=== PATIENT | female | born 1995 | race Caucasian/White ===

== ENCOUNTER 2023-11-06 07:33 | Inpatient (IN) ==
[2023-11-06] MEDS ORDERED: LIDOCAINE 1% LOCAL 20 ML VIAL INFIL PRN (07:46)
[2023-11-06] MEDS ORDERED: OXYTOCIN 30 UNITS/NSS 30 UNITS/500 ML BAG IV PRN (07:46)
--- NOTE | 2023-11-06 08:09 | History & Physical Report ---
Date of Service November 06, 2023 Assessment & Plan (1) Encounter for induction of labor: Plan pitocin arom when indicated monitor tracing, category 1 Admission and Anticipated Discharge Date Admission Date: November 06, 2023 History of Present Illness Primary Care Provider: Ban Obando DO 28 yo at 39w4d admitted for IOL for GDM. Denies MARINELLI, CP, SOB, N/V/D, LE pain. GBS neg, RH+, + movement, negative LOF Allergies Allergy/AdvReac Type Severity Reaction Status Date / Time amoxicillin Allergy Intermediate swelling, Verified 11/03/23 10:06 rash azithromycin Allergy Intermediate swelling, Verified 11/03/23 10:06 rash Penicillins Allergy Intermediate swelling, Verified 11/03/23 10:06 rash Home Medications Medication Instructions Recorded Confirmed Type cholecalciferol (vitamin D3) 25 50 mcg (2 x 25 mcg (1,000 unit)) 12/23/22 11/06/23 Rx mcg (1,000 unit) capsule PO DAILY #30 caps vit 168-iron 27 mg-folic 1 cap PO DAILY 03/23/23 11/06/23 History acid 800 mcg-omega3 235 mg capsule (One-A-Day -1) acetone (urine) test (Ketone Urine #50 ea 06/23/23 11/03/23 Rx Test strips) blood sugar diagnostic (OneTouch #150 ea 06/23/23 11/03/23 Rx Verio test strips) blood-glucose meter (OneTouch #1 ea 06/23/23 11/03/23 Rx Verio Reflect Meter) lancets 33 gauge (OneTouch Delica #150 ea 06/23/23 11/03/23 Rx Plus Lancet) pen needle, diabetic 32 gauge x #100 ea 07/04/23 11/03/23 Rx 5/32" (BD Ultra-Fine Shanae Pen Needle) insulin NPH isoph U-100 human 100 10 unit subcut QPM 10/04/23 11/06/23 History unit/mL (3 mL) subcutaneous pen (Novolin N FlexPen) doxylamine succinate 25 mg tablet 25 mg PO HS PRN Sleep 11/06/23 11/06/23 History (Unisom (doxylamine)) Patient History Medical History (Updated 11/06/23 @ 08:32 by Carlos S Carvis, DO) Migraines history of migraines Tailors bunion Allergic rhinitis Nausea and vomiting after administration of anesthetic agent Vitamin D insufficiency Surgical History H/O colonoscopy Hx of LASIK S/P wisdom tooth extraction S/P bunionectomy Right x2. Family History Father Diabetes Hypertension Dyslipidemia Mother Asthma Grandfather (Maternal) Salivary gland cancer Other No family history of adverse response to anesthesia Denies family history of Ovarian cancer Prostate cancer Myocardial infarction Breast cancer Colorectal cancer Social History (Updated 11/06/23 @ 07:51 by Denise Ocampo, MACHELLE) Smoking Status: Never smoker Second Hand Exposure: No; Do You Dip or Chew Tobacco: No; Hx Alcohol Use: No Hx Substance Use: No Preferred Language: Dutch Communication Ability: Effective Visual Impairment: No Limitations Hearing Ability: Normal Director Of Managed Services Required: No Beliefs That Will Affect Care: None marital status: marital status details: Ryne ([phone]) [phone] Current Living Situation: Spouse Current Living Situation Comment: lives with spouse, 1 dog. current occupational status: employed current occupation: Collision Repair Technician [employer] How many Children do You have: 0 Other Information That Helps Us Care for You: No Feels Safe at Home: Yes Safety Concerns: Feels Safe At This Time Childhood Exposure to Second-Hand Smoke: No Diet: regular caffeine: Yes during the past year weight has: remained stable Dental Care, Regularly: Yes Physical Activity Frequency: 5-6 Times per Week Seatbelt Use: always Sunscreen Use: Yes Gender Identity: Female Assistive Devices: None Review of Systems reviewed, per HPI Physical Exam Physical Exam: General: patient resting comfortably, NAD, non-toxic in appearance, answers questions appropriately. Skin: warm, dry, intact HEENT: NC/AT, moist mucus membranes Heart: +S1/S2, regular, no m/r/g Lungs: equal air entry bilaterally, no rales/rhonchi/wheezes Abd: +BS, soft, NT/ND, gravid uterus Cervical: 4|80|-1| Ext: warm, no clubbing/cyanosis or edema Neuro: nonfocal, speech intact, no facial droop, moving all extremities on command. : FHR baseline 130, moderate variability, accelerations present, decelerations absent Results & Data Vital Signs (Past 12 Hours) Vital Signs Temp Pulse Resp BP 11/06/23 07:43 36.7 C 85 20 126/80 Supervising Physician Co-Signing Physician Notes Patient seen and evaluated and agree with the above findings and plan. Resident Activity Tracking Resident Involvement: Resident Care Provided Care Provided: Adult Hospital Medicine
[2023-11-06] MEDS: LACTATED RINGER'S 1,000 ML IV PRN (08:16)
[2023-11-06] MEDS: OXYTOCIN 30 UNITS/NSS 30 UNITS/500 ML BAG IV PRN (08:22)
[2023-11-06 08:27] LABS: Mean Corpuscular Hemoglobin 30.4 pg (25.0-34.0); Mean Corpuscular Hgb Conc 35.3 g/dL (32.0-36.0); Mean Corpuscular Volume 86.1 fL (80.0-100.0); Mean Platelet Volume 12.3 fL (9.4-12.4); Platelet Count 117 K/uL (130-400); RDW Standard Deviation 39.8 fL (36.4-46.3); Red Blood Count 3.95 M/uL (4.20-5.40); White Blood Count 8.56 K/ul (4.8-10.8)
[2023-11-06] MEDS ORDERED: ACETAMINOPHEN 325 MG TAB PO PRN (10:11)
[2023-11-06] MEDS: ACETAMINOPHEN 325 MG TAB PO PRN (10:22)
[2023-11-06] MEDS ORDERED: BUPIVACAINE 0.25% PF 30 ML VIAL EPI PRN (13:50)
[2023-11-06] MEDS ORDERED: fentANYL 2 MCG/ML BUPIVacaine 0.125%-NSS 100ML BAG EPI PRN (13:50)
[2023-11-06] MEDS ORDERED: diphenhydrAMINE 50 MG/ML VIAL IV PRN ×3 (13:50→19:16)
[2023-11-06] MEDS ORDERED: SODIUM CHLORIDE 0.9% PF INJ 10 ML VIAL EPI PRN (13:50)
[2023-11-06] MEDS ORDERED: NALOXONE HCL 0.4 MG/1 ML VIAL/CARP IV PRN ×2 (13:50→18:34)
[2023-11-06] MEDS ORDERED: NALBUPHINE HCL 5 MG in SYRINGE 0 ML IV PRN ×2 (13:50→18:34)
[2023-11-06] MEDS ORDERED: fentaNYL citrate PF 100 MCG/2 ML VIAL EPI PRN (13:50)
[2023-11-06] MEDS ORDERED: LIDOCAINE 2% MPF LOCAL 5 ML VIAL EPI PRN (13:50)
[2023-11-06] MEDS ORDERED: ePHEDrine sulfate 50 MG/ML AMP IV PRN ×2 (13:50→18:34)
[2023-11-06] MEDS ORDERED: ROPIVACAINE 0.5% PF 5 MG/ML 20 ML VIAL EPI PRN (13:50)
[2023-11-06] MEDS ORDERED: NALOXONE HCL 1 MG in SODIUM CHLORIDE 0.9% 1,000 ML IV PRN ×2 (13:50→18:34)
--- NOTE | 2023-11-06 13:50 | Anesthesiology Consultation ---
Date of Service November 06, 2023 Assessment & Plan ASA ASA2 Proposed Anesthesia Anesthesia Type: Labor Epidural Risk / Benefits Reviewed With: PT / POA / Parent / Guardian, Accepts Plan and Informed Consent Obtained History Height/Weight Height: 5 ft 4 in Weight: 84.096 kg Allergies Allergy/AdvReac Type Severity Reaction Status Date / Time amoxicillin Allergy Intermediate swelling, Verified 11/03/23 10:06 rash azithromycin Allergy Intermediate swelling, Verified 11/03/23 10:06 rash Penicillins Allergy Intermediate swelling, Verified 11/03/23 10:06 rash Medications Home Medications Medication Instructions Recorded Confirmed Last Taken cholecalciferol (vitamin D3) 25 50 mcg (2 x 25 mcg (1,000 unit)) 12/23/22 11/06/23 11/04/23 21:00 mcg (1,000 unit) capsule PO DAILY #30 caps vit 168-iron 27 mg-folic 1 cap PO DAILY 03/23/23 11/06/23 11/03/23 21:00 acid 800 mcg-omega3 235 mg capsule (One-A-Day -1) acetone (urine) test (Ketone Urine #50 ea 06/23/23 11/03/23 Unknown Test strips) blood sugar diagnostic (OneTouch #150 ea 06/23/23 11/03/23 Unknown Verio test strips) blood-glucose meter (OneTouch #1 ea 06/23/23 11/03/23 Unknown Verio Reflect Meter) lancets 33 gauge (OneTouch Delica #150 ea 06/23/23 11/03/23 Unknown Plus Lancet) pen needle, diabetic 32 gauge x #100 ea 07/04/23 11/03/23 Unknown 32" (BD Ultra-Fine Shanae Pen Needle) insulin NPH isoph U-100 human 100 10 unit subcut QPM 10/04/23 11/06/23 11/03/23 21:00 unit/mL (3 mL) subcutaneous pen (Novolin N FlexPen) doxylamine succinate 25 mg tablet 25 mg PO HS PRN Sleep 11/06/23 11/06/23 10/30/23 21:00 (Unisom (doxylamine)) Active Medications Generic Name Dose Route Start Last Admin Trade Name Freq PRN Reason Stop Dose Admin Acetaminophen 650 mg 11/06/23 07:46 11/06/23 10:22 Acetaminophen 325 Mg Tab PO 12/06/23 07:45 650 mg Q6H PRN Administration Pain Oxytocin 30 units in 500 mls @ 12 mls/hr 11/06/23 07:47 11/06/23 12:03 Pitocin 30 Units/Nss IV 11/08/23 07:46 0.72 units/hr .Q24H PRN 12 mls/hr Labor Induction/Augmentation Titration Protocol 0.72 UNITS/HR Lactated Ringer's 1,000 mls @ 125 mls/hr 11/06/23 07:46 11/06/23 13:48 Lr IV 11/08/23 07:45 999 mls/hr .Q8H PRN Administration L&D Protocol Protocol Past Medical History Medical History Migraines history of migraines Tailors bunion Allergic rhinitis Nausea and vomiting after administration of anesthetic agent Vitamin D insufficiency Exercise / Class Metabolic Activity II 4-5 Yardwork/Stairs/Walk up hill Past Family History Family History Father Diabetes Hypertension Dyslipidemia Mother Asthma Grandfather (Maternal) Salivary gland cancer Other No family history of adverse response to anesthesia Denies family history of Ovarian cancer Prostate cancer Myocardial infarction Breast cancer Colorectal cancer Past Surgical History Surgical History H/O colonoscopy Hx of LASIK S/P wisdom tooth extraction S/P bunionectomy Right x2. Past Anesthesia History No Hx of Anesthesia Complications and No Family Hx of Anesthesia Complications History of PONV No Hx of PONV and No Hx of Motion Sickness Social History Smoking Status: Never smoker Do You Dip or Chew Tobacco: No Hx Alcohol Use: No Alcohol type: beer alcohol intake frequency: a few times a month Hx Substance Use: No substance use type: does not use Review of Systems denies fever/cough/ colds/ chest pain/ SOB/ EUSEBIA denies EUSEBIA Physical Exam Vital Signs Last Vital Signs Temp 36.8 C 11/06/23 12:02 Pulse 53 L 11/06/23 13:32 Resp 18 11/06/23 12:30 BP 132/84 11/06/23 13:32 ENMT Mouth: no TMJ abnormality and no dentition abnormality Thyromental Distance: > or= 3.5 Finger Breadths Mallampati Class: II Neck neck extension not limited Respiratory normal respiratory effort; no respiratory distress Auscultation: lungs clear to auscultation bilaterally Cardiovascular Rate/Rhythm: regular rate and regular rhythm Neurologic moves all extremities Psychiatric Orientation: alert and oriented x 3 Testing Laboratory Results 11/06/23 08:08 11/06/23 08:25 POC Glucose 95
[2023-11-06] MEDS: LIDOCAINE 2%/EPINEPHRINE 1:200,000 20 ML PF ONE (14:05)
[2023-11-06] MEDS: fentaNYL citrate PF 100 MCG/2 ML VIAL ONE (14:07)
[2023-11-06] MEDS: fentANYL 2 MCG/ML BUPIVacaine 0.125%-NSS 100ML BAG ONE (14:11)
[2023-11-06] MEDS: BUPIVACAINE 0.25% PF 30 ML VIAL ONE (14:18)
[2023-11-06] MEDS: SODIUM CHLORIDE 0.9% PF INJ 10 ML VIAL EPI STA (14:21)
[2023-11-06] MEDS ORDERED: PROPOFOL IV EMULSION 10 MG/ML 20 ML VIAL IV ONE (17:56)
[2023-11-06] MEDS ORDERED: SUCCINYLCHOLINE CHLORIDE 20 MG/ML 10 ML VIAL IV ONE (17:56)
[2023-11-06] MEDS ORDERED: OXYTOCIN 10 UNITS/ML VIAL ONE (17:57)
[2023-11-06] MEDS ORDERED: fentaNYL citrate PF 100 MCG/2 ML VIAL ONE ×2 (18:00→18:05)
[2023-11-06] MEDS ORDERED: KETAMINE HCL INJ 50 MG/ML 10 ML VIAL ONE (18:06)
[2023-11-06] MEDS ORDERED: HYDROmorphone INJ 2 MG/ML SYR/VIAL ONE (18:06)
[2023-11-06] MEDS ORDERED: PHENYLEPHRINE 100MCG/ML 10ML SYR IV ONE (18:10)
[2023-11-06] MEDS ORDERED: ONDANSETRON INJ 2 MG/ML 2 ML VIAL ONE (18:10)
[2023-11-06 18:29] LABS: Base Excess Cord Arterial Bld -7.7 mEq/L (-9-1.8); Base Excess Cord Venous Blood -6.6 mEq/L (-7.7-1.9); CO2 Cord Arterial Blood 62 mmHg (39.1-73.5); Cord Venous Blood HCO3 20 mmol/L (18.4-26.8); Cord Venous Blood PCO2 44 mmHg (30.4-57.2); Cord Venous Blood PO2 25 mmHg (14.1-43.3); Cord Venous Blood pH 7.27 (7.20-7.44); HCO3 Cord Arterial Blood 22 mmol/L (19.7-28.5); O2 Saturation Cord Venous Bld < 60.0 % (<68); Oxygen Sat Cord Arterial Blood < 60.0 % (<60); PO2 Cord Arterial Blood < 20 mmHg (4.1-31.7); pH Cord Arterial Blood 7.16 (7.1-7.38)
[2023-11-06] MEDS ORDERED: NALOXONE HCL 0.08 MG in SYRINGE 1.8 ML IV PRN (18:34)
[2023-11-06] MEDS ORDERED: HYDROmorphone INJ 0.5 MG/0.5 ML SYR IV PRN (18:34)
[2023-11-06] MEDS ORDERED: LACTATED RINGER'S 500 ML IV PRN (18:34)
[2023-11-06] MEDS ORDERED: MoRPHine SULFATE PF 1 MG/ML 10 ML AMP/VIAL ONE (18:34)
[2023-11-06] MEDS ORDERED: ONDANSETRON INJ 2 MG/ML 2 ML VIAL IV PRN ×2 (18:34→19:16)
[2023-11-06] MEDS ORDERED: MoRPHine SULFATE 2 MG/ML CARP IV PRN (18:34)
[2023-11-06] MEDS: ePHEDrine sulfate 50 MG/ML AMP ONE (18:39)
[2023-11-06] MEDS ORDERED: NO NARCOTICS OR SEDATIVES SCH (18:45)
[2023-11-06] MEDS ORDERED: DC INTRASPINAL MORPHINE SCH (18:45)
[2023-11-06] MEDS ORDERED: LIDOCAINE 2%/EPINEPHRINE 1:200,000 20 ML PF ONE (19:04)
--- NOTE | 2023-11-06 19:07 | Anesthesia Procedure Note ---
Date of Service November 06, 2023 Anesthesia Post Epidural Note Vital Signs Vital Signs: Temp Pulse Resp BP Pulse Ox 36.8 C 88 20 119/73 94 11/06/23 16:29 11/06/23 19:12 11/06/23 16:29 11/06/23 19:12 11/06/23 19:10 Pain Intensity Abdomen: Pain Intensity: 0 Notes Mental Status: alert / awake / arousable Nausea / Vomiting: adequately controlled Pain: adequately controlled Airway Patency, RR, SpO2: stable & adequate BP & HR: stable & adequate Hydration State: stable & adequate Neuraxial Anesthesia: sensory block is resolving Anesthetic Complications: no major complications apparent and Pt Satisfied with anesthetic care Epidural: Removed without complications and With tip intact
--- NOTE | 2023-11-06 19:14 | Anesthesiology Progress Note ---
Date of Service November 06, 2023 Anesthesia Post Procedure Vital Signs Vital Signs: Temp Pulse Resp BP Pulse Ox 11/06/23 19:12 88 119/73 11/06/23 19:10 82 94 11/06/23 19:06 76 125/73 11/06/23 19:05 94 11/06/23 19:05 74 11/06/23 19:05 74 93 11/06/23 18:59 100 H 100 11/06/23 18:54 90 100 11/06/23 18:49 101 H 130/65 100 11/06/23 17:50 83 100 11/06/23 17:47 110 H 93 11/06/23 17:45 87 100 11/06/23 17:43 93 H 141/96 H 11/06/23 17:40 109 H 99 11/06/23 17:35 77 99 11/06/23 17:30 79 100 11/06/23 17:28 76 11/06/23 17:28 79 144/88 H 94 11/06/23 17:25 69 100 11/06/23 17:20 62 100 11/06/23 17:15 56 L 100 11/06/23 17:13 55 L 147/88 H 11/06/23 17:10 64 100 11/06/23 17:05 52 L 99 11/06/23 17:00 54 L 99 11/06/23 16:59 53 L 148/91 H 11/06/23 16:55 63 99 11/06/23 16:50 52 L 99 11/06/23 16:45 59 L 99 11/06/23 16:44 54 L 128/85 11/06/23 16:40 59 L 99 11/06/23 16:35 56 L 98 11/06/23 16:30 66 99 11/06/23 16:29 36.8 C 55 L 20 138/85 11/06/23 16:25 62 98 11/06/23 16:20 55 L 99 11/06/23 16:15 99 11/06/23 16:15 59 L 11/06/23 16:15 57 L 129/90 11/06/23 16:11 56 L 124/84 11/06/23 16:10 58 L 100 11/06/23 16:05 58 L 99 11/06/23 16:00 61 99 11/06/23 15:58 63 136/96 11/06/23 15:55 65 99 11/06/23 15:50 67 99 11/06/23 15:45 61 99 11/06/23 15:44 55 L 130/85 11/06/23 15:40 54 L 99 11/06/23 15:35 63 99 11/06/23 15:30 64 99 11/06/23 15:29 54 L 135/82 11/06/23 15:25 65 100 11/06/23 15:20 63 99 11/06/23 15:15 98 11/06/23 15:15 56 L 11/06/23 15:15 50 L 129/84 11/06/23 15:12 36.9 C 20 11/06/23 15:10 69 99 11/06/23 15:05 72 99 11/06/23 15:00 67 98 11/06/23 14:59 63 121/73 11/06/23 14:55 70 98 11/06/23 14:50 64 99 11/06/23 14:45 73 98 11/06/23 14:44 62 118/72 11/06/23 14:40 62 97 11/06/23 14:35 71 98 11/06/23 14:30 69 97 11/06/23 14:29 62 121/72 11/06/23 14:25 63 98 11/06/23 14:20 66 98 11/06/23 14:15 71 97 11/06/23 14:13 65 123/74 11/06/23 14:11 76 122/72 11/06/23 14:10 62 98 11/06/23 14:09 60 131/81 11/06/23 14:07 67 128/80 11/06/23 14:05 74 130/80 99 11/06/23 14:02 65 135/90 11/06/23 14:00 63 99 11/06/23 13:55 61 99 11/06/23 13:32 53 L 132/84 11/06/23 12:32 64 131/88 11/06/23 12:30 18 11/06/23 12:30 18 11/06/23 12:05 55 L 133/86 11/06/23 12:02 36.8 C 16 11/06/23 11:30 61 132/91 11/06/23 10:59 64 20 125/79 11/06/23 10:31 72 124/93 11/06/23 09:29 74 22 127/76 11/06/23 09:14 82 118/79 11/06/23 09:00 76 127/83 11/06/23 08:45 85 16 117/81 11/06/23 08:41 20 11/06/23 08:29 83 128/89 11/06/23 07:43 36.7 C 85 20 126/80 Pain Intensity Abdomen: Pain Intensity: 0 Transfer of Care Handoff Completed per policy Notes Mental Status: alert / awake / arousable and participated in evaluation Patient Amnestic to Procedure: Yes Nausea / Vomiting: adequately controlled Pain: adequately controlled Airway Patency, RR, SpO2: stable & adequate BP & HR: stable & adequate Hydration State: stable & adequate Anesthetic Complications: no major complications apparent and Pt Satisfied with anesthetic care
--- NOTE | 2023-11-06 19:15 | Post Operative Brief Note ---
PG Immediate Post Op with CF Date of Surgery November 06, 2023 Pre & Post Diagnosis Operation Date: 11/06/23 17:55 Pre-Op Diagnosis: Nonreassuring heart tracing Failed Vacuum I identified the patient and participated in the time-out.: Yes Procedure Operation Date: 11/06/23 17:55 Actual Procedures p Section in OR 3 with result of live male child at 1803 - Jacob Hough MD Surgeon Jacob Hough MD Supervisor Photostat Dr Fountain Estimated Blood Loss 600 Findings Consistent with Post-Op Diagnosis Specimens Specimen Description: A: Placenta B: Cord Blood C: Cord Gases Drains Hall Catheter (Placed in Labor Room prior to OR) OB Procedure charges OB Charges 85445
[2023-11-06] MEDS ORDERED: MAGNESIUM HYDROXIDE SUSP 30 ML UDC PO PRN (19:16)
[2023-11-06] MEDS ORDERED: SENNA 8.6 MG TAB PO PRN (19:16)
[2023-11-06] MEDS ORDERED: KETOROLAC 30 MG/ML VIAL IV PRN (19:16)
[2023-11-06] MEDS ORDERED: PROMETHAZINE HCL 25 MG in SODIUM CHLORIDE 0.9% 50 ML IV PRN (19:16)
[2023-11-06] MEDS ORDERED: oxyCODONE/ACETAMINOPHEN 5mg/325mg TAB PO PRN (19:16)
[2023-11-06] MEDS ORDERED: HYDROCORTISONE ACETATE 25 MG SUPP PR PRN (19:16)
[2023-11-06] MEDS ORDERED: BENZOCAINE 20% SPRY 85 APPLN/85 GM CAN EXT PRN (19:16)
[2023-11-06] MEDS ORDERED: IBUPROFEN 600 MG TAB PO PRN (19:16)
[2023-11-06] MEDS ORDERED: diphenhydrAMINE Capsule 25 MG CAP PO PRN (19:16)
[2023-11-06] MEDS ORDERED: LACTATED RINGER'S 1,000 ML IV SCH (19:30)
[2023-11-06] MEDS: OXYTOCIN 20 UNITS/LR 1,002 ML IV SCH (19:31)
[2023-11-06] MEDS: OXYTOCIN 20 UNITS/1002ML LR IV ONE (20:15)
[2023-11-06] MEDS ORDERED: Nursing to Pharmacy Communication SCH (21:00)
--- NOTE | 2023-11-06 21:31 | Operative Report ---
PG Post Operative Report Pre & Post Diagnosis Operation Date: 11/06/23 17:55 Pre-Op Diagnosis: Nonreassuring heart tracing Failed Vacuum Post-Op Diagnosis: Nonreassuring heart tracing Failed Vacuum I identified the patient and participated in the time-out.: Yes Procedure Operation Date: 11/06/23 17:55 Actual Procedures p Section in Main OR 3 with result of live male child at 1803 - Jacob Hough MD Surgeon Jacob Hough MD Sheet Metal Helper Dr Fountain Estimated Blood Loss 600 Findings Consistent with Post-Op Diagnosis Specimens Placenta Indications There is noted to be nonreassuring heart tones with low baseline and recurrent decels noted. Baseline was initially around 105 - 110 and declined to 90-100 with variable decelerations. Patient was noted to be complete at that time and +2 station. Discussed option for a vacuum-assisted delivery tube expedite delivery due to the heart rate tracing. Patient verbally consented for the vacuum-assisted delivery. We attempted for poles with 2 pop- off's and ultimately opted to proceed with urgent section due to failed vacuum with nonreassuring heart tracing. Patient was verbally consented for the section due to the urgent nature of the procedure. Description of Procedure Patient was taken to the operating room and was properly identified. Anesthesia obtained and the preprocedural timeout was performed. Pfannenstiel incision was made with a knife this was carried down to underlying fascia with a knife and nicked at midline. Fascia was extended laterally in both directions with blunt dissection. The midline was then entered and placed on stretch. Bladder blade was inserted. A low to transverse uterine incision was made with a knife. Uterine cavity was entered bluntly. Deep extraction was performed with vaginal and needed to elevate the head out of the pelvis. Head delivered through the hysterotomy quickly followed by shoulders and body. was noted be vigorous soon after delivery and 30 second delayed cord clamping was performed. Cord was then double clamped and cut. Cord segment and cord blood obtained. Attention was turned to deliver the placenta which delivered with uterine massage and gentle cord traction and was noted to be intact with three- vessel cord. Uterus was exteriorized and wrapped in a wet lap. Several passes were made to remove any remaining membranes with a dry lap. The hysterotomy was reapproximated with 3-0 Vicryl and continuous running lock stitch. A second imbricating layer was performed. There were noted to be no significant extensions. The posterior cul-de-sac was cleaned of clots and debris. Hysterotomy reinspected and noted to have continued hemostasis. Uterus returned maternal abdomen and right left paracolic gutters were cleaned of clots and debris. Hysterotomy was noted to have continued hemostasis. Muscle fascia and subcutaneous layers were inspected noted be hemostatic. The fascia was reapproximated with 0 Vicryl continuous running stitch. Subcutaneous layer was reapproximated at the Abner's layer with 2-0 plain. Skin was reapproximated with 3-0 Vicryl and continuous running subcuticular stitch. Dermabond placed on top. Needle sponge and instrument counts were correct at the completion of the case. Both mother and stable in the immediate post delivery period. I attest to the content of the Intraoperative Record and any orders documented therein. Any exceptions are noted below.
[2023-11-07] MEDS: ceFAZolin 2000MG 2,000 MG/15 ML SYR IV SCH (02:31)
[2023-11-07] MEDS: KETOROLAC 30 MG/ML VIAL IV PRN (05:32)
--- NOTE | 2023-11-07 06:17 | Obstetrical Progress Note ---
Date of Service November 07, 2023 Assessment & Plan (1) S/P : (2) care and examination: Plan Doing well Bailey out Encourage ambulation Pain control Admission and Anticipated Discharge Date Admission Date: November 06, 2023 Supervising Physician Co-Signing Physician Notes Day 1 status post urgent . Both baby and mom are doing well. We reviewed the delivery course and answered questions to the patient and her partner satisfaction. Will continue with routine post care. Subjective 28 yo post op day 1 s/p Ambulation: not yet ambulating Voiding: via bailey Passing Gas:: Yes Diet Tolerance:: regular diet Lochia:: Small Current Pain Level: moderate Resting comfortably this AM in NAD. Denies MARINELLI, CP, SOB, N/V/D, LE pain/swelling. Review of Systems Review of Systems: reviewed, per HPI Physical Exam Physical Exam: General: patient resting comfortably, NAD, non-toxic in appearance Skin: warm, dry, intact HEENT: NC/AT, anicteric sclera, conjunctiva without injection, moist mucus membranes. Heart: +S1/S2, regular, no m/r/g Lungs: equal air entry bilaterally, no rales/rhonchi/wheezes Abd: +BS, soft, NT/ND, uterine fundus firm at umbilicus, caesarean incision C/D/I. : bailey remains in place this am Ext: warm, no clubbing/cyanosis or edema, Cleveland's neg. Neuro: nonfocal, speech intact, no facial droop, moving all extremities on command. Results & Data Vital Signs (Past 12 Hours) Vital Signs Temp Pulse Pulse Resp BP BP Pulse Ox 11/07/23 05:36 14 94 11/07/23 04:15 14 93 11/07/23 03:59 16 95 11/07/23 03:50 36.8 C 99 H 14 133/76 95 11/07/23 02:30 14 94 11/07/23 01:10 16 95 11/07/23 01:00 14 96 11/07/23 00:00 16 94 11/06/23 23:46 16 98 11/06/23 23:46 36.8 C 104 H 16 136/82 98 11/06/23 21:45 14 98 11/06/23 21:45 36.7 C 98 H 14 134/85 98 11/06/23 21:02 99 H 128/75 11/06/23 21:01 109 H 90 11/06/23 21:00 100 H 96 11/06/23 20:55 98 H 99 11/06/23 20:52 97 H 135/69 11/06/23 20:50 100 H 98 11/06/23 20:49 16 11/06/23 20:45 79 98 11/06/23 20:42 76 128/67 11/06/23 20:40 81 97 11/06/23 20:35 86 97 11/06/23 20:32 76 131/81 11/06/23 20:30 82 98 11/06/23 20:25 83 98 11/06/23 20:22 97 H 127/79 11/06/23 20:20 83 96 11/06/23 20:19 18 11/06/23 20:15 83 96 11/06/23 20:11 96 H 119/80 11/06/23 20:10 90 95 11/06/23 20:05 125 H 94 11/06/23 20:03 92 H 94 11/06/23 20:02 90 116/74 11/06/23 20:00 89 93 11/06/23 19:58 86 94 11/06/23 19:55 80 96 11/06/23 19:52 84 122/76 94 11/06/23 19:50 80 95 11/06/23 19:49 18 11/06/23 19:46 69 94 11/06/23 19:45 84 95 11/06/23 19:42 75 114/72 11/06/23 19:40 72 94 11/06/23 19:39 20 11/06/23 19:38 74 94 11/06/23 19:35 88 95 11/06/23 19:32 91 11/06/23 19:32 80 11/06/23 19:32 82 115/72 11/06/23 19:30 81 96 11/06/23 19:29 18 11/06/23 19:26 82 94 11/06/23 19:25 83 96 11/06/23 19:22 78 122/74 11/06/23 19:21 84 92 11/06/23 19:20 84 95 11/06/23 19:19 18 11/06/23 19:15 89 96 11/06/23 19:12 88 119/73 11/06/23 19:10 82 94 11/06/23 19:09 18 11/06/23 19:06 76 125/73 11/06/23 19:05 94 11/06/23 19:05 74 11/06/23 19:05 74 93 11/06/23 18:59 18 11/06/23 18:59 100 H 100 11/06/23 18:54 90 100 11/06/23 18:49 36.4 C L 20 11/06/23 18:49 101 H 130/65 100 O2 Del Method 11/07/23 05:36 11/07/23 04:15 11/07/23 03:59 11/07/23 03:50 Room Air 11/07/23 02:30 11/07/23 01:10 11/07/23 01:00 11/07/23 00:00 11/06/23 23:46 11/06/23 23:46 Room Air 11/06/23 21:45 11/06/23 21:45 Room Air 11/06/23 21:02 11/06/23 21:01 11/06/23 21:00 11/06/23 20:55 11/06/23 20:52 11/06/23 20:50 11/06/23 20:49 11/06/23 20:45 11/06/23 20:42 11/06/23 20:40 11/06/23 20:35 11/06/23 20:32 11/06/23 20:30 11/06/23 20:25 11/06/23 20:22 11/06/23 20:20 11/06/23 20:19 11/06/23 20:15 11/06/23 20:11 11/06/23 20:10 11/06/23 20:05 11/06/23 20:03 11/06/23 20:02 11/06/23 20:00 11/06/23 19:58 11/06/23 19:55 11/06/23 19:52 11/06/23 19:50 11/06/23 19:49 11/06/23 19:46 11/06/23 19:45 11/06/23 19:42 11/06/23 19:40 11/06/23 19:39 11/06/23 19:38 11/06/23 19:35 11/06/23 19:32 11/06/23 19:32 11/06/23 19:32 11/06/23 19:30 11/06/23 19:29 11/06/23 19:26 11/06/23 19:25 11/06/23 19:22 11/06/23 19:21 11/06/23 19:20 11/06/23 19:19 11/06/23 19:15 11/06/23 19:12 11/06/23 19:10 11/06/23 19:09 11/06/23 19:06 11/06/23 19:05 11/06/23 19:05 11/06/23 19:05 11/06/23 18:59 11/06/23 18:59 11/06/23 18:54 11/06/23 18:49 11/06/23 18:49 Resident Activity Tracking Resident Involvement: Resident Care Provided Care Provided: Adult Hospital Medicine
[2023-11-07 06:22] LABS: Hematocrit (blood only) 26.4 % (37.0-47.0); Hemoglobin 9.3 g/dl (12.0-16.0)
[2023-11-07] MEDS: FERROUS SULFATE 325 MG TAB PO SCH (08:32)
[2023-11-07] MEDS: SIMETHICONE 80 MG CHEW PO SCH (08:32)
[2023-11-07] MEDS: PRENATAL VITAMIN 1 TAB PO SCH (08:33)
[2023-11-07] MEDS: DOCUSATE SODIUM 100 MG CAP PO SCH (08:33)
[2023-11-07] MEDS: ONDANSETRON INJ 2 MG/ML 2 ML VIAL IV PRN (09:43)
[2023-11-07] MEDS ORDERED: KETOROLAC 30 MG/ML VIAL IV PRN (12:34)
[2023-11-07] MEDS ORDERED: ONDANSETRON INJ 2 MG/ML 2 ML VIAL IV PRN (12:34)
[2023-11-07] MEDS ORDERED: HYDROCORTISONE ACETATE 25 MG SUPP PR PRN (12:34)
[2023-11-07] MEDS ORDERED: diphenhydrAMINE Capsule 25 MG CAP PO PRN (12:35)
[2023-11-07] MEDS ORDERED: diphenhydrAMINE 50 MG/ML VIAL IV PRN (12:35)
[2023-11-07] MEDS ORDERED: PROMETHAZINE HCL 25 MG in SODIUM CHLORIDE 0.9% 50 ML IV PRN (12:35)
[2023-11-07] MEDS: oxyCODONE/ACETAMINOPHEN 5mg/325mg TAB PO PRN (15:46)
[2023-11-07] MEDS: IBUPROFEN 600 MG TAB PO PRN (15:46)
[2023-11-07] MEDS: SODIUM CHLORIDE 0.9% PF INJ 10 ML VIAL ONE (16:09)
[2023-11-07] MEDS: BUPIVACAINE 0.25% PF 30 ML VIAL EPI STA (16:10)
[2023-11-07] MEDS: MoRPHine SULFATE PF 1 MG/ML 10 ML AMP/VIAL EPI ONE (16:10)
[2023-11-07] MEDS: SODIUM CHLORIDE 0.9% 1,000 ML IV SCH (16:10)
[2023-11-07] MEDS: LIDOCAINE 2%/EPINEPHRINE 1:200,000 20 ML PF EPI STA (16:10)
[2023-11-07] MEDS: fentaNYL citrate PF 100 MCG/2 ML VIAL EPI STA (16:10)
[2023-11-07] MEDS: DIPHTHER/TETAN/PERTUS Vaccine (Tdap, Adol/Adult) 0.5mL IM ONE (16:10)
[2023-11-07] MEDS: bisacodyL 5 MG TABEC PO SCH (19:32)
--- NOTE | 2023-11-08 07:26 | Obstetrical Progress Note ---
Date of Service November 08, 2023 Assessment & Plan (1) care and examination: doing well post-op/ continue current care plan Subjective Ambulation: ambulating normally Voiding: no voiding problems Passing Gas:: Yes (no BM yet) Diet Tolerance:: regular diet Lochia:: Small Feeding Type:: breast feeding Review of Systems All systems reviewed & are unremarkable except as noted in HPI & below Physical Exam Constitutional WD/WN, vitals as above Psychiatric A+Ox3, euthymic affect Genitourinary OB Exam Abdomen: + fundal height Fundus: + firm and + relation to umbilicus (1 below U) incision intact and dry- no cellulitis Results & Data Vital Signs (Past 12 Hours) Vital Signs Temp Pulse Resp BP Pulse Ox O2 Del Method 11/08/23 01:05 97.7 F 84 16 126/83 96 Room Air 11/07/23 19:55 97.9 F 96 H 18 127/84 97 Room Air
[2023-11-08] MEDS ORDERED: bisacodyL 10 MG SUPP PR PRN (19:16)
--- NOTE | 2023-11-17 09:38 | Discharge Summary ---
Date of Service November 17, 2023 Admission HPI Per Admitting Provider 28 yo at 39w4d admitted for IOL for GDM. Denies MARINELLI, CP, SOB, N/V/D, LE pain. GBS neg, RH+, + movement, negative LOF Discharge Data Consultations 11/06/23 07:46 Consult Anesthesiology Stat Procedures Performed Operation Date: 11/06/23 17:55 Actual Procedures p Section in Main OR 3 with result of live male child at 1803 - Jacob Hough MD Hospital Course (1) S/P : Presented for induction of labor. Delivery resulted in a urgent for nonreassuring heart tones and failed vacuum delivery. Procedure performed without complication. Recovered in-house until day 2 and was discharged home in stable condition per her preference. Was provided both written and verbal discharge instructions upon discharge. Admitted 11/05 and discharge 11/07. Coding Level of Care Code None Diagnoses S/P Z98.891
== END 2023-11-08 09:25 | disposition home or self-care (01) | DRG 788 ==
LOC: 4S1 07:33 → 4E2 21:21